=== PATIENT | female | born 2005 | race African-American/Black ===

== ENCOUNTER 2024-05-09 22:31 | Emergency (ER) | payer OTHER ==
[~2024-05-09] VITALS: Ht 154.9 cm; Wt 68.9 kg
[2024-05-09 22:34] VITALS: TEMP 97.8
[2024-05-10] MEDS: IPRATROPIUM 0.5MG/ALBUTEROL 2.5MG INH SOL UD 3ML (DUONEB) NEB ONE ×2 (01:16→01:48)
[2024-05-10] MEDS ORDERED: PRED20TA PO (01:19)
[2024-05-10] MEDS ORDERED: VENTAER INH (01:20)
[2024-05-10] MEDS: predniSONE 20 MG TAB PO ONE (01:28)
[2024-05-10 02:00] VITALS: BP 136/77; O2SAT 97
== END 2024-05-10 02:15 | disposition home or self-care (01) ==
LOC: M ED 22:31
DX: J45.909 Unspecified asthma, uncomplicated (principal); B34.1 Enterovirus infection, unspecified; Z79.51 Long term (current) use of inhaled steroids; Z79.52 Long term (current) use of systemic steroids
CPT/HCPCS: 71046; 87486; 87581; 87633; 87798; 94640; 99284; J7512